=== PATIENT | male | born 1945 | race Caucasian/White ===

== ENCOUNTER 2023-11-06 23:03 | Outpatient (CLI) | payer SELFPAY | END 2023-11-06 23:04 | disposition EMS.NT | LOC: EMS 23:03 | DX: R44.3 Hallucinations, unspecified (principal) ==

== ENCOUNTER 2023-12-11 08:25 | Outpatient (CLI) | payer MEDICARE | END 2023-12-11 23:59 | disposition critical access hospital (66) | LOC: EMS 08:25 | DX: R10.31 Right lower quadrant pain (principal) | CPT/HCPCS: A0425; A0429 ==

== ENCOUNTER 2023-12-11 08:43 | Emergency (ER) | payer MEDICARE, OTHER ==
--- NOTE | 2023-12-11 08:49 | ED Physician Documentation ---
PD HPI ABD PAIN - Stated complaint Stated Complaint: RLQ PX - History obtained from History obtained from: Patient - History of Present Illness Timing - onset: How many days ago (several) Timing - duration: Days Timing - details: Still present, Waxing and waning PD PAST MEDICAL HISTORY - Present Medications Home Medications: Ambulatory Orders Medication Instructions Recorded Confirmed Docusate Sodium 100Mg Capsule 100 mg PO DAILY #15 cap 12/11/23 [Colace 100Mg Capsule] HYDROcod/ACETAM 5/325 [[place] 5/325] 1 ea PO Q6H PRN #18 tablet 12/11/23 Meloxicam [Mobic] 7.5 mg PO BID 10 Days #20 tablet 12/11/23 Tamsulosin [Flomax] 0.4 mg PO DAILY #5 cap 12/11/23 - Allergies Allergies/Adverse Reactions: Allergies Allergy/AdvReac Type Severity Reaction Status Date / Time No Known Drug Allergies Allergy Verified 12/11/23 08:58 PD ED PE NORMAL - Vitals Vital signs reviewed: Yes (low BMI) - General General: Alert and oriented X 3, No acute distress, Well developed/nourished - Neck Neck: Supple, no meningeal sign, No adenopathy - Cardiac Cardiac: RRR, No murmur - Respiratory Respiratory: No respiratory distress, Clear bilaterally - Abdomen Abdomen: Normal bowel sounds, Soft, Non tender, Non distended, No organomegaly, Other (he is thin so I can feel aortic pulsations, but does not feel excess nor enlarged. ) - Derm Derm: Normal color, Warm and dry, No rash (no skin tendeerness in area.) Results - Vitals Vitals: Oxygen O2 Source Room air - Labs Labs: Laboratory Tests 12/11/23 12/11/23 12/11/23 08:50 08:50 12:00 WBC 5.2 RBC 4.94 Hgb 15.1 Hct 48.3 MCV 97.8 H MCH 30.6 MCHC 31.3 L RDW 12.5 Plt Count 320 MPV 10.9 Neut # (Auto) 3.1 Lymph # (Auto) 1.0 L [place] # (Auto) 0.8 Eos # (Auto) 0.2 Baso # (Auto) 0.0 Absolute Nucleated RBC 0.00 Nucleated RBC % 0.0 Sodium 140 Potassium 4.3 Chloride 105 Carbon Dioxide 27 Anion Gap 8.0 BUN 21 H Creatinine 0.8 Estimated GFR (MDRD) 94 Glucose 76 Calcium 9.5 Magnesium 2.0 Total Bilirubin 1.1 H AST 21 ALT < 3 L Alkaline Phosphatase 77 Total Protein 6.3 L Albumin 3.9 Globulin 2.4 Albumin/Globulin Ratio 1.6 Lipase < 10 L Urine Color YELLOW Urine Clarity CLEAR Urine pH 6.0 Ur Specific [place] 1.015 Urine Protein NEGATIVE Urine Glucose (UA) NEGATIVE Urine Ketones 40 H Urine Occult Blood TRACE-INTA Urine Nitrite NEGATIVE Urine Bilirubin NEGATIVE Urine Urobilinogen 1 (NORMAL) Ur Leukocyte Esterase NEGATIVE Ur Microscopic Review NOT INDICATED Urine Culture Comments NOT INDICATED - Rads (name of study) abd CT Relevant Findings:: Prelim report reviewed, Discussed with rads, EMP independent interpretation of test PD Medical Decision Making - ED course Complexity details: reviewed results (urine without infection. Lipase and LFTs are normal. Some blood in urine. CT showing stone in prox ureter but not causing obstruction. No other cause noted though. Has been duration enough to think shingles rash would be showing, and not full pattern of dermatome. Will presume stone effect.), considered differential (pain right flank to RUQ, with some radiation to right mid/lower. Steady and not impacted by much. Sounds renal/stone. Also consider vascular in older male with HTN. Less likely GB or pancreatic but labs obtained to eval. ), d/w datapower consultant (Radiologist - no hydronephrosis, but there is 5x8 mm stone in apparently very proximal ureter. No other acute findings. ) Departure - Departure Disposition: 01 Home, Self Care Clinical Impression: Right sided abdominal pain, Ureterolithiasis Condition: Stable Record reviewed to determine appropriate education?: Yes Instructions: Abdominal Pain, ED Stone Renal W Colic Follow-Up: Vimal Ziegler MD [Provider Admit Priv/Credential] - Prescriptions: Docusate Sodium 100Mg Capsule [Colace 100Mg Capsule] 100 mg PO DAILY #15 cap Tamsulosin [Flomax] 0.4 mg PO DAILY #5 cap Meloxicam [Mobic] 7.5 mg PO BID 10 Days #20 tablet HYDROcod/ACETAM 5/325 [[place] 5/325] 1 ea PO Q6H PRN #18 tablet PRN Reason: Pain Comments: I did talk with the radiologist. Apparently we both were seeing kidney stone. Location domínguez does appear to be just at the upper ureter but at the moment does not look to be causing a blockage of the urine flow. So both impressions were different aspects of the same kidney stone. No other obvious source for your pain is seen on the imaging or your lab testing. I presume the stone there is intermittently blocking the way and causing worse pain at times. It is of the size that is likely to be able to pass though if you have been having pain for a few days, it still fairly high up. Typically would treat this with a combination of some anti-inflammatories plus a medication to reduce ureter spasms. To that add Tylenol/acetaminophen 650 mg 4 times a day. On top that, you can add hydrocodone/acetaminophen every 6 hours if needed for pains. Follow-up with urology if not improved well over the next several days or so to week. I sent your prescriptions to your preferred pharmacy. Return to the ER if worsening symptoms overall in particular uncontrolled pain. Add a daily stool softener to help with any side effects from the medication. Forms: PCP List Discharge Date/Time: 12/11/23 12:51
[2023-12-11 08:59] LABS: BASOPHILS % (AUTO) 0.8 %; EOSINOPHILS # (AUTO) 0.2 10^3/uL (0.0-0.7); EOSINOPHILS % (AUTO) 3.1 %; HCT - HEMATOCRIT 48.3 % (42.0-52.0); HGB - HEMOGLOBIN 15.1 g/dL (14.0-18.0); LYMPHOCYTES % (AUTO) 19.6 %; MEAN CORPUSCULAR HEMOGLOBIN 30.6 pg (27.0-31.0); MEAN CORPUSCULAR HGB CONC 31.3 g/dL (32.0-36.0); MEAN CORPUSCULAR VOLUME 97.8 fL (80.0-94.0); MEAN PLATELET VOLUME 10.9 fL (7.4-11.4); MONOCYTES # (AUTO) 0.8 10^3/uL (0.0-1.0); MONOCYTES % (AUTO) 15.9 %; NEUTROPHILS # (AUTO) 3.1 10^3/uL (1.5-6.6); NEUTROPHILS % (AUTO) 60.4 %; PLT - PLATELET COUNT 320 10^3/uL (130-450); RED BLOOD COUNT 4.94 10^6/uL (4.70-6.10); RED CELL DISTRIBUTION WIDTH 12.5 % (12.0-15.0); WHITE BLOOD COUNT 5.2 x10^3/uL (4.8-10.8)
[2023-12-11] MEDS: KETOROLAC 15 MG/ML VIAL IVP STA (09:05)
[2023-12-11] MEDS: SODIUM CHLORIDE 0.9% 1,000 ML IV STA (09:05)
[2023-12-11 09:34] LABS: ALBUMIN 3.9 g/dL (3.2-5.5); ALBUMIN/GLOBULIN RATIO 1.6 (1.0-2.2); ALKALINE PHOSPHATASE 77 IU/L (42-121); ALT ALANINE AMINOTRANSFERASE < 3 IU/L (10-60); AST ASPARTATE AMINOTRANSFERASE 21 IU/L (10-42); BILIRUBIN,TOTAL 1.1 mg/dL (0.2-1.0); BUN - BLOOD UREA NITROGEN 21 mg/dL (6-20); CALCIUM 9.5 mg/dL (8.5-10.3); CARBON DIOXIDE - CO2 27 mmol/L (21-32); CHLORIDE 105 mmol/L (101-111); CREATININE 0.8 mg/dL (0.6-1.3); GFR - MDRD 94 (>89); GLUCOSE 76 mg/dL (74-104); LIPASE < 10 U/L (11-82); POTASSIUM 4.3 mmol/L (3.5-4.5); SODIUM 140 mmol/L (135-145); TOTAL PROTEIN 6.3 g/dL (6.4-8.9)
[2023-12-11] MEDS ORDERED: iohexoL-300 100 ML VIAL ONE (10:01)
[2023-12-11] MEDS: iohexoL-300 100 ML VIAL IVP ONE (10:35)
--- NOTE | 2023-12-11 10:54 | CT Report ---
PROCEDURE: Abdomen/Pelvis W INDICATIONS: Abdominal pain, acute, right abd mainly CONTRAST: 100ml omni 300 TECHNIQUE: After the administration of intravenous contrast, a CT scan of the abdomen and pelvis was performed. Images were recorded and evaluated at appropriate window settings. Reformats: coronal and sagittal. F or radiation dose reduction, the following was used: automated exposure control, adjustment of mA and /or kV according to patient size. COMPARISON: None. FINDINGS: Image quality: Diagnostic. Lower chest: Patchy ground glass consolidative opacities involving the right greater than left lower lobes and right middle lobe. Liver: No solid mass. Gallbladder: No radiopaque stones or wall thickening. Biliary tree: Mild common bile duct dilatation measuring 9 mm, may be within normal limits for age. Spleen: No splenomegaly. Pancreas: No pancreatic ductal dilation. Adrenals: No adrenal nodule. Kidneys and ureters: Nonobstructing bilateral renal stones, largest measuring up to 8 mm on the right . No hydronephrosis. No renal cystic lesion which requires follow up. No solid mass. Focal atrophy ve rsus postsurgical changes of the superior pole the right kidney and inferior pole the left kidney. Stomach, bowel and peritoneum: No gastric or small bowel dilation. No abnormal wall thickening. Moder ate stool burden in the colon. No pathologic free fluid. Surgical clips in the pelvis. Lymph nodes: No central or retroperitoneal adenopathy. Vessels: No infrarenal aortic aneurysm. Atherosclerotic vascular calcifications. Patent portal vein. PELVIS Reproductive organs: Prostate appears surgically absent. Bladder: No abnormal wall thickening, accounting for underdistention. Pelvic lymph nodes: No pelvic adenopathy by size criteria. Bones: Heterogeneous sclerotic appearance of the right pelvis. Degenerative changes in the spine. Sta tus post L4-L5 posterior spinal fixation and discectomy. Other: No significant ventral or inguinal hernia. IMPRESSION: 1.Patchy groundglass and consolidative opacities involving the lung bases concerning for infection. 2.Nonobstructing bilateral renal stones, largest measuring 8 mm on the right. 3.Mild common bile duct dilatation measuring 9 mm. This may be within normal limits for age. Laborato ry and clinical correlation is recommended. 4.The prostate appears to be surgical absent. Heterogeneous sclerotic appearance of the right pelvis, in the presence of prostatectomy, findings may represent metastatic disease from prostate cancer. Re commend clinical correlation. 5.Moderate stool burden. 6.Focal atrophy versus postsurgical changes at the superior pole of the right kidney and inferior anny e of the left kidney. Reviewed by: Keenan Win MD on 12/11/2023 10:53 AM PDT Approved by: Keenan Win MD on 12/11/2023 10:53 AM PDT Station ID: [id number]
[2023-12-11] MEDS: CARBIDOPA/LEVODOPA 25 MG/100 MG TABLET PO STA (11:08)
[2023-12-11 12:13] LABS: BILIRUBIN,URINE NEGATIVE (NEGATIVE); GLUCOSE, URINE (UA) NEGATIVE (NEGATIVE); KETONES,URINE (UA) 40 mg/dL (NEGATIVE); LEUKOCYTE ESTERASE, URINE NEGATIVE (NEGATIVE); NITRITE,URINE NEGATIVE (NEGATIVE); OCCULT BLOOD,URINE TRACE-INTA (NEGATIVE); PROTEIN,URINE NEGATIVE (NEGATIVE); UROBILINOGEN,URINE 1 (NORMAL) E.U./dL (NORMAL)
[2023-12-11 12:14] LABS: CLARITY,URINE CLEAR (CLEAR)
[2023-12-11] MEDS: HYDROcod/ACETAM 5/325 MG TABLET PO STA (12:22)
[2023-12-11] MEDS: TAMSULOSIN 0.4 MG CAPSULE PO STA (12:22)
[2023-12-11 12:45] VITALS: BP 120/89; O2SAT 98
== END 2023-12-11 12:51 | disposition home or self-care (01) ==
LOC: EDBD → ED 08:43
DX: N20.0 Calculus of kidney (principal); R10.31 Right lower quadrant pain; Z79.899 Other long term (current) drug therapy
CPT/HCPCS: 36415; 74177; 80053; 81003; 83690; 83735; 85025; 99283; 99284; A9270; Q9967; 81001; 87086

== ENCOUNTER 2024-01-13 13:28 | Outpatient (CLI) | payer MEDICARE | END 2024-01-13 23:59 | disposition EMS.NT | LOC: EMS 13:28 | DX: M54.2 Cervicalgia (principal); W18.39XA Other fall on same level, initial encounter; Y92.099 Unspecified place in other non-institutional residence as the place of occurrence of the external cause ==

== ENCOUNTER 2024-01-13 16:18 | Outpatient (CLI) | payer MEDICARE | END 2024-01-13 16:19 | disposition EMS.NT | LOC: EMS 16:18 | DX: Z03.89 Encounter for observation for other suspected diseases and conditions ruled out (principal) ==